=== PATIENT | male | born 2000 | race Caucasian/White ===

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

== ENCOUNTER 2022-01-14 12:11 | Emergency (ER) | payer SELFPAY ==
[~2022-01-14] VITALS: Ht 193 cm; Wt 139.3 kg
[2022-01-14 12:56] VITALS: BP 166/74
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
[2022-01-14] MEDS ORDERED: IBUPROFEN 600 MG TABLET ONE (14:23)
[2022-01-14] MEDS ORDERED: IBUPROFEN 600 MG TABLET PO ONE (14:30)
--- NOTE | 2022-01-14 15:00 | NUR ---
Lrft hand cleaned/irrigated by CHRISTIANNE Davis. Xr done
[2022-01-14] MEDS ORDERED: IBUP-1957 PO (15:03)
--- NOTE | 2022-01-14 15:32 | NUR ---
Patient discharged to home in stable condition. Written and verbal after care instructions given. Patient verbalizes understanding of instruction.
== END 2022-01-14 15:33 | disposition home or self-care (01) ==
LOC: ER 12:18
DX: S16.1XXA Strain of muscle, fascia and tendon at neck level, initial encounter (principal); S60.222A Contusion of left hand, initial encounter; S09.90XA Unspecified injury of head, initial encounter; J45.909 Unspecified asthma, uncomplicated; E11.9 Type 2 diabetes mellitus without complications; Z98.890 Other specified postprocedural states; Z88.0 Allergy status to penicillin; V49.49XA Driver injured in collision with other motor vehicles in traffic accident, initial encounter; Y93.89 Activity, other specified; Y92.413 State road as the place of occurrence of the external cause; Y99.8 Other external cause status
CPT/HCPCS: 70450; 72125; 73110; 73130; 99284; A6403